=== PATIENT | male | born 1950 | race Caucasian/White ===

== ENCOUNTER 2017-12-08 13:36 | Emergency (ER) | payer OTHER, MEDICARE ==
[2017-12-08 13:45] VITALS: TEMP 97.5
--- NOTE | 2017-12-08 15:23 | CPEKG ---
Heart Rate: 69 RR Interval: 870 P-R Interval: 188 QRSD Interval: 98 QT Interval: 408 QTC Interval: 437 P Lincoln: 61 QRS Lincoln: -43 T Wave Lincoln: 54 EKG Severity - OTHERWISE NORMAL ECG - EKG Impression: SINUS RHYTHM EKG Impression: LEFT AXIS DEVIATION Electronically Signed By: Deven Faulkner 08-Dec-2017 22:47:12
[2017-12-08 15:33] LABS: PLATELET COUNT 277 10^3/uL (150-400)
--- NOTE | 2017-12-08 15:35 | EDPHY ---
H & P Stated Complaint: increasing hypertention over last month/cook HPI/ROS: HPI CHIEF COMPLAINT: Hypertension, anxiety, headaches HISTORY OF PRESENT ILLNESS: This patient is a 67-year-old male, history of Kurtz's esophagitis, IBS, hypertension, migraine headaches he presents emergency room stating that for the past week he has noticed his blood pressures been running high. Additionally he has been having migraine headaches. Patient states that he suffers from migraines this feels exactly like his previous migraines. He takes Imitrex for this. He states he has been getting nightly headaches and has been noticing that his blood pressures been running high. He states that he takes Cardizem for his blood pressure and recently had a lower dose prescribed. He thinks maybe his doses too low. He states blood pressure is 170s over 100s today and he decided come the emergency room. He denies any chest pain or shortness of breath. Currently denies headache. Upon arrival his blood pressure was noted to be high however after resting in the emergency room is blood pressure is currently 149/99. No headache at this time. Normal neurological exam. Patient states that his hypertension is making feel anxious. Past Medical History: Kurtz's esophagus, IBS, hypertension, migraine headaches Past Surgical History: No recent surgery Social History: Lives locally denies drugs alcohol tobacco. Family History: Noncontributory ROS REVIEW OF SYSTEMS: A comprehensive 10 point review of systems is otherwise negative aside from elements mentioned in the history of present illness. Exam Constitutional appears well nontoxic no acute distress, triage nursing summary reviewed, vital signs reviewed, awake/alert. Eyes normal conjunctivae and sclera, EOMI, PERRLA. HENT normal inspection, atraumatic, moist mucus membranes, no epistaxis, neck supple/ no meningismus, no raccoon eyes. Respiratory clear to auscultation bilaterally, normal breath sounds, no respiratory distress, no wheezing. Cardiovascular rate normal, regular rhythm, no murmur, no edema, distal pulses normal. Gastrointestinal soft, non-tender, no rebound, no guarding, normal bowel sounds, no distension, no pulsatile mass. Genitourinary no CVA tenderness. Musculoskeletal no midline vertebral tenderness, full range of motion, no calf swelling, no tenderness of extremities, no meningismus, good pulses, neurovascularly intact. Skin pink, warm, & dry, no rash, skin atraumatic. Neurologic awake, alert and oriented x 3, AAOx3, moves all 4 extremities equally, motor intact, sensory intact, CN II-XII intact, normal cerebellar, normal vision, normal speech. Psychiatric normal mood/affect. Heme/Lymph/Immune no lymphadenopathy. Differential Diagnosis: Includes but is not limited to in a particular order hypertensive urgency, hypertensive emergency, kidney failure, anxiety, migraine headache Medical Decision Making: Plan for this patient check basic blood work, looking kidney function, EKG, monitor his blood pressure closely here. May need to change his blood pressure medication or increase it with close follow-up with his primary care doctor. Re-evaluation: EKG interpretation by me on record in [employer] system. Impression time of EKG 15 20, sinus rhythm rate of 69. I do not appreciate acute ischemic change. 1632: Patient's blood work unremarkable negative troponin normal kidney function. He has a nonischemic EKG. Patient's blood pressure stable here in emergency room and not very high. He does not have chest pain shortness of breath. I do recommend he follows up closely this primary care doctor. I have given him prescription for diltiazem 180 mg which she used to be on. He understands keep a close eye on his blood pressure. Take it twice a day. Return emergency room if high blood pressure, fever, chest pain, shortness of breath severe headache. Source: Patient - Personal History Current Tetanus/Diphtheria Vaccine: Yes - Medical/Surgical History Hx Asthma: No Hx Chronic Respiratory Disease: No Hx Diabetes: No Hx Cardiac Disease: No Hx Renal Disease: No Hx Cirrhosis: No Hx Alcoholism: No Hx HIV/AIDS: No Hx Splenectomy or Spleen Trauma: No Other PMH: htn/migraines/barretts esophagus - Social History Smoking Status: Never smoked Constitutional: Initial Vital Signs Temperature (C) 36.4 C 12/08/17 13:42 Heart Rate 74 12/08/17 13:42 Respiratory Rate 18 12/08/17 13:42 Blood Pressure 166/110 H 12/08/17 13:42 O2 Sat (%) 96 12/08/17 13:42 O2 Delivery Mode Room Air Allergies/Adverse Reactions: No Known Allergies Allergy (Unverified 12/08/17 13:40) Home Medications: Medication Instructions Recorded Cardizem 12/08/17 Dicyclomine 12/08/17 Diltiazem HCl [Cardizem LA] 180 mg PO DAILY #30 tab.er.24h 12/08/17 IMITREX 12/08/17 Nexium 12/08/17 Medical Decision Making - Diagnostics Imaging Results: Imaging Impressions Chest X-Ray 12/08/17 15:17 Impression: Nothing acute identified. - Data Points Laboratory Results: Laboratory Results 12/08/17 15:18 18 15:18 12/08/17 12/08/17 15:18 15:18 WBC 8.50 10^3/uL 10^3/uL (3.80-9.50) RBC 6.04 10^6/uL 10^6/uL (4.40-6.38) Hgb 17.4 g/dL g/dL (13.7-17.5) Hct 50.0 % % (40.0-51.0) MCV 82.8 fL fL (81.5-99.8) MCH 28.8 pg pg (27.9-34.1) MCHC 34.8 g/dL g/dL (32.4-36.7) RDW 13.5 % % (11.5-15.2) Plt Count 277 10^3/uL 10^3/uL (150-400) MPV 9.9 fL fL (8.7-11.7) Neut % (Auto) 70.4 % % (39.3-74.2) Lymph % (Auto) 16.8 % % (15.0-45.0) Spink % (Auto) 8.1 % % (4.5-13.0) Eos % (Auto) 2.9 % % (0.6-7.6) Baso % (Auto) 0.7 % % (0.3-1.7) Nucleat RBC Rel Count 0.0 % % (0.0-0.2) Absolute Neuts (auto) 5.98 10^3/uL 10^3/uL (1.70-6.50) Absolute Lymphs (auto) 1.43 10^3/uL 10^3/uL (1.00-3.00) Absolute Monos (auto) 0.69 10^3/uL 10^3/uL (0.30-0.80) Absolute Eos (auto) 0.25 10^3/uL 10^3/uL (0.03-0.40) Absolute Basos (auto) 0.06 10^3/uL 10^3/uL (0.02-0.10) Absolute Nucleated RBC 0.00 10^3/uL 10^3/uL (0-0.01) Immature Gran % 1.1 % % (0.0-1.1) Immature Gran # 0.09 10^3/uL 10^3/uL (0.00-0.10) Sodium 145 mEq/L mEq/L (135-145) Potassium 3.6 mEq/L mEq/L (3.5-5.2) Chloride 100 mEq/L mEq/L (97-110) Carbon Dioxide 31 mEq/l mEq/l (22-31) Anion Gap 14 mEq/L mEq/L (8-16) BUN 15 mg/dL mg/dL (7-23) Creatinine 1.0 mg/dL mg/dL (0.7-1.3) Estimated GFR > 60 Glucose 126 mg/dL H mg/dL (70-100) Calcium 10.1 mg/dL mg/dL (8.5-10.4) Troponin I < 0.012 ng/mL ng/mL (0.000-0.034) Departure - Departure Disposition: Home, Routine, Self-Care Clinical Impression: Hypertension Qualifiers: Hypertension type: unspecified Qualified Code(s): I10 - Essential (primary) hypertension Condition: Good Instructions: Hypertension (ED) Additional Instructions: 1. Follow up with her primary care doctor. 2. Check her blood pressure twice a day at the same time keep a log of this. 3. If he develops severe headache, chest pain, high blood pressure return emergency room. 4. Make sure your doctor knows that we have increased your diltiazem. Referrals: Aurora Laguerre MD [Primary Care Provider] - As per Instructions Prescriptions: Diltiazem HCl [Cardizem LA] 180 mg PO DAILY #30 tab.er.24h
[2017-12-08 16:33] VITALS: BP 157/87; PULSE 80; RESP 16; O2SAT 95
== END 2017-12-08 17:03 | disposition home or self-care (01) ==
DX: I10 Essential (primary) hypertension (principal)